=== PATIENT | female | born 1965 | race Two or more races ===

== ENCOUNTER 2019-03-16 01:59 | Outpatient (CLI) | payer OTHER | END 2019-03-16 02:00 | disposition critical access hospital (66) | LOC: EMS 01:59 | PROVIDERS: ATTEND Surgery | DX: R41.82 Altered mental status, unspecified (principal); R47.81 Slurred speech; Z72.89 Other problems related to lifestyle | CPT/HCPCS: A0425; A0429 ==

== ENCOUNTER 2019-03-16 02:18 | Emergency (ER) | payer OTHER ==
--- NOTE | 2019-03-16 02:19 | ED Physician Documentation ---
PD HPI ALTERED MENTAL STATUS - Stated complaint Stated Complaint: LOC - History obtained from History obtained from: Patient, EMS - History of Present Illness Timing - details: Gradual onset Quality / character: Less responsive Associated symptoms: No: Headache, Stiff neck, Dyspnea, Cough, NVD, General weakness, Focal weakness Contributing factors: Intoxicated Basline status: Alert and oriented X 3, Ambulatory, Independent Recently seen: Not recently seen - Additional information Additional information: BIBA. Medics state that patient was sitting on a bench outside a bar, did not appear to be responding and thus police were called. Reportedly, they administered sternal rub and patient responded to this with profanity and belligerent behavior. EMS was called and bring patient to ED for AMS. Patient is drowsy but awakens to verbal and gentle tactile stimulation, admits to drinking alcohol heavily. She denies any fall, denies injury, repeatedly requesting to be discharged. She says she did not want to come to ED Review of Systems Cardiac: reports: Reviewed and negative Respiratory: reports: Reviewed and negative GI: reports: Reviewed and negative Neurologic: reports: Altered mental status. denies: Generalized weakness, Focal weakness, Numbness, Headache, Head injury, LOC PD PAST MEDICAL HISTORY - Past Medical History Past Medical History: No - Allergies Allergies/Adverse Reactions: Allergies Allergy/AdvReac Type Severity Reaction Status Date / Time No Known Drug Allergies Allergy Verified 03/16/19 02:36 - Living Situation Living Arrangement: reports: At home - Social History Does the pt drink ETOH?: No PD ED PE NORMAL - Vitals Vital signs reviewed: Yes - General General: No acute distress, Well developed/nourished, Other (asleep, awakens to verbal combined with gentle tactile stimuli) - HEENT HEENT: Atraumatic, PERRL, EOMI, Moist mucous membranes - Neck Neck: No bony TTP - Cardiac Cardiac: RRR, No murmur, No gallop, No rub - Respiratory Respiratory: No respiratory distress, Clear bilaterally - Abdomen Abdomen: Soft, Non tender - Neuro Neuro: Alert and oriented X 3, 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 During H+P, she takes out her cell phone and is able to make calls and speak intelligibly. At this time, there is no cause to hold her in ED against her will and no indication for emergent testing nor treatment Departure - Departure Disposition: 01 Home, Self Care Clinical Impression: Alcohol intoxication Qualifiers: Complication of substance-induced condition: uncomplicated Qualified Code(s): F10.920 - Alcohol use, unspecified with intoxication, uncomplicated Condition: Good Instructions: ED Alcohol Intoxication Discharge Date/Time: 03/16/19 02:54
[2019-03-16 02:35] VITALS: BP 119/82
== END 2019-03-16 02:54 | disposition home or self-care (01) ==
LOC: EDUNIT# → ED 02:18
DX: F10.920 Alcohol use, unspecified with intoxication, uncomplicated (principal)
CPT/HCPCS: 99283; 99284

== ENCOUNTER 2019-05-13 08:51 | Outpatient (CLI) | payer OTHER ==
--- NOTE | 2019-05-13 10:25 | SLEEP CARE CONSULTATION ---
Information from patient questionnaire entered by Kiersten Wells. I have reviewed and concur with the information entered by Kiersten Wells. This document represents the service I personally performed and the decisions made by me, Rosy Multani MD, [facility]. History of Present Illness Reason for Visit: New patient Chief Complaint: reports: Other (was not able to breathe/hospitalized, unable to sleep) Duration of Symptoms: most of my life Usual bedtime: varies Time it takes to fall asleep: hours Snores at night: Yes Observed to quit breathing while asleep: No Number of times waking at night: 5-6 Reasons for waking at night: reports: Bathroom, Other (just wake up) Toss, Turn, or Twitch while sleeping: Yes Recalls having dreams: Yes Usually gets out of bed at: varies Feels refreshed in the morning: No Morning headache: No Sleepy or fatigued during the day: Yes Ever fallen asleep while driving: Yes Takes day naps: Yes Dreams during day naps: Yes Prior sleep studies: No Additional HPI information: I had the pleasure of seeing Ms. Borges today regarding the possibility of her having a sleep disorder. As you know, she is a 53 year old lady who complains of shortness of breath at night. She was on home oxygen for a month 4 months ago. The patient tells me that she normally goes to bed at variable times, and it takes her approximately hours to fall asleep. She has not been told that she snores loudly and irregularly at night. She has never been observed to stop breathing in her sleep. However, she sleeps alone. She can recall waking up on the average of 5 - 6 times during the night. Most of the time she wakes up because of having to use the bathroom. She has awakened occasionally because of her own snoring, choking, and having to gasp for air. There is not a lot of tossing and turning in her sleep. No somniloquy (sleep talking) or somnambulism (sleep walking). In the morning she usually gets up out of the bed at variable times, not feeling refreshed nor rested. She usually does not have a morning headache. During the day she complains of feeling sleepy and fatigued. However, her score on [place] Sleepiness Scale is 2 out of 24. She has fallen asleep while driving and has gone out of the boo. She usually takes naps during the day. Upon falling asleep during the day she reports having dreams. She has never had sleep paralysis, experienced cataplexy or symptoms of restless leg syndrome. She denies having impaired concentration during the day. - Parasomnia Symptoms Ever been unable to move upon waking from sleep: No Ever felt weak in the knees when startled or emotional: No Bothered by creepy, crawly, restless sensations in legs: No Problems with memory or concentration: No Past Medical History Past Medical History: reports: Claustrophobia, Hypothyroidism, Anxiety, Asthma, Depression, GERD Social History The patient's occupation is a disabled . Patient is Single and lives in . Have you smoked in the past 12 months: Yes Cigarettes per day (20/pack): 10 Years of smokin Smoking Pack Years: 15.0 Alcohol use: Yes Alcohol amount and frequency: 1-2 drinks a week Caffeine use: Yes Caffeine amount and frequency: 3-4 cups a day Family History Family history of sleep disordered breathing: No Allergies and Home Medications Drug allergies reviewed: Yes Home medication list reviewed: Yes Allergy and home medication list: Meds: levothyroxine, omeprazole, fluoxetine Allergies: no known drug allergies Review of Systems Weight gain over past 5 years: 160 Cardiovascular: denies: high blood pressure, palpitations, chest pain, irregular heart rate or pulse, leg or foot swelling, have to sleep sitting up, other Respiratory: reports: shortness of breath Gastrointestinal: reports: heartburn Urinary: denies: incontinence, frequency, urgency, impotence, other Neurological: reports: headaches, seizure Psychiatric: reports: anxiety, depression, claustrophobia Ear/Nose/Throat: denies: nasal congestion, sinus problems, nose bleeds, dry mouth/throat, hoarseness, injury to nose, tonsillectomy, wisdom teeth removed, other Endocrine: reports: thyroid disease, sluggishness, too hot or cold, increased appetite Musculoskeletal: reports: joint pain, neck pain, muscle pain or cramping, mobility problems Immunologic: reports: sneezing, itching, allergies to food or environment (to environment) Physical Exam Vital signs obtained and entered by: Dr. Multani Blood Pressure: 104/80 Cuff size: regular Heart Rate: 75 O2 Saturation: 95 Height: 5 ft 2 in Weight: 260 lb Body Mass Index: 47.5 BMI Classification: Obesity Class 3 Neck circumference: 16 Mood/affect: normal HEENT: No craniofacial malformation Nostrils: patent to airflow Turbinates: normal Septum: midline Mouth and throat: narrow oropharynx Soft palate: long Hard palate: normal Uvula: normal Uvula visualization: 25% Mallampati Class III Tongue: normal in size Tonsils: small Chin and jaw: normal size and position Neck: normal w/o lymphadenopathy or thyromegaly Heart: regular rate and rhythm Lungs: clear bilaterally Abdomen: soft, non-tender Extremities: no edema or clubbing Neurologic: intact, no focal deficits Impression and Plan IMPRESSION: 1. Hypoxemia, and nocturnal dyspnea. Obstructive sleep apnea-hypopnea is very likely given loud and irregular snoring, frequent awakenings during the night, nocturnal choking, unrefreshed sleep, and daytime hypersomnolence. Narrow oropharynx and obesity are common predisposing factors for obstructive sleep apnea-hypopnea syndrome. Pathophysiology of sleep-disordered breathing was discussed. I recommend proceeding to polysomnography to confirm the diagnosis and to assess severity. If she has significant sleep disordered breathing, a manual CPAP titration study will also be performed to find the optimal treatment pressure. I informed the patient of what the sleep studies involve and after some discussion, she agreed to proceed. Plan: 1. Schedule polysomnography + manual CPAP titration study. 2. Avoid long distance driving or when feeling sleepy. 3. Avoid alcohol, sedative and muscle relaxant around bedtime. 4. Attempt to lose weight. 5. Quit smoking cigarettes 5. Return in 1 to 2 weeks after the study to discuss results and initiate therapy I spent 100% of this visit face to face with the patient with greater than 50% of this was spent time counseling the patient and coordination of care.
[2019-05-13 10:26] VITALS: BP 104/80
== END 2019-05-13 08:52 | disposition home or self-care (01) ==
LOC: SC 08:51
PROVIDERS: ATTEND Internal Medicine Pulmonary Disease
DX: R09.02 Hypoxemia (principal); R06.83 Snoring; G47.8 Other sleep disorders; G47.10 Hypersomnia, unspecified; E66.9 Obesity, unspecified; Z68.42 Body mass index [BMI] 45.0-49.9, adult
CPT/HCPCS: 99203; 99212

== ENCOUNTER 2019-05-26 18:57 | Outpatient (CLI) | payer OTHER | END 2019-05-26 18:58 | disposition home or self-care (01) | LOC: SC 18:57 | PROVIDERS: ATTEND Internal Medicine Pulmonary Disease | DX: G47.33 Obstructive sleep apnea (adult) (pediatric) (principal); E66.01 Morbid (severe) obesity due to excess calories; Z68.42 Body mass index [BMI] 45.0-49.9, adult | CPT/HCPCS: 95810 ==

== ENCOUNTER 2019-07-07 19:01 | Outpatient (CLI) | payer OTHER | END 2019-07-07 19:02 | disposition home or self-care (01) | LOC: SC 19:01 | PROVIDERS: ATTEND Internal Medicine Pulmonary Disease | DX: G47.33 Obstructive sleep apnea (adult) (pediatric) (principal) | CPT/HCPCS: 95811 ==

== ENCOUNTER 2019-07-23 09:27 | Emergency (ER) | payer OTHER ==
--- NOTE | 2019-07-23 10:10 | XRAY Report ---
Reason: chest pain, cough Procedure Date: 07/23/2019 Accession Number: [id number] / [id number] Procedure: XR - Chest 2 View X-Ray CPT Code: 73113 Final Report FULL RESULT: EXAM: CHEST RADIOGRAPHY EXAM DATE: 07/23/2019 10:03 AM. CLINICAL HISTORY: Chest pain, cough. COMPARISON: None. TECHNIQUE: 2 views. FINDINGS: Lungs/Pleura: Lung volumes are within normal. There is mildly increased reticular opacity with the left midline. No pleural effusion. There is no pneumothorax. Mediastinum: Heart and mediastinal contours are unremarkable. Other: None. IMPRESSION: 1. Normal lung volumes and heart size. 2. There is mildly increased opacity within the left midlung. Differential considerations include infiltrate or artifact secondary to overlapping structures. 3. No evidence of pleural effusion. 4. There is no pneumothorax. RADIA
[2019-07-23 10:26] LABS: BASOPHILS % (AUTO) 0.2 %; EOSINOPHILS # (AUTO) 0.1 10^3/uL (0.0-0.7); EOSINOPHILS % (AUTO) 1.8 %; HGB - HEMOGLOBIN 13.6 g/dL (12.0-16.0); LYMPHOCYTES # (AUTO) 1.2 10^3/uL (1.5-3.5); LYMPHOCYTES % (AUTO) 21.3 %; MEAN CORPUSCULAR HEMOGLOBIN 28.1 pg (27.0-31.0); MEAN CORPUSCULAR HGB CONC 32.5 g/dL (32.0-36.0); MEAN CORPUSCULAR VOLUME 86.4 fL (81.0-99.0); MEAN PLATELET VOLUME 9.9 fL (7.9-10.8); MONOCYTES # (AUTO) 0.4 10^3/uL (0.0-1.0); MONOCYTES % (AUTO) 6.6 %; NEUTROPHILS # (AUTO) 3.9 10^3/uL (1.5-6.6); NEUTROPHILS % (AUTO) 69.7 %; PLT - PLATELET COUNT 230 10^3/uL (130-450); RED BLOOD COUNT 4.84 10^6/uL (4.20-5.40); RED CELL DISTRIBUTION WIDTH 13.1 % (12.0-15.0); WHITE BLOOD COUNT 5.6 x10^3/uL (4.8-10.8)
--- NOTE | 2019-07-23 10:36 | ED Physician Documentation ---
PD HPI URI - Stated complaint Stated Complaint: FEVER/COUGH - Chief complaint Chief Complaint: Resp - History obtained from History obtained from: Patient - History of Present Illness Timing - onset: How many days ago (several days) Timing duration: Days Timing details: Abrupt onset, Still present Associated symptoms: Fever, Productive cough, Chest pain, Dyspnea. No: Hemoptysis, NVD Contributing factors: No: Sick contact, Travel, Immunocompromised, COPD / asthma Similar symptoms before: Has not had sx before Review of Systems Constitutional: reports: Fever, Chills, Myalgias Nose: reports: Congestion Cardiac: reports: Chest pain / pressure (with coughing). denies: Palpitations Respiratory: reports: Dyspnea, Cough GI: denies: Nausea, Vomiting, Diarrhea Skin: denies: Rash Neurologic: reports: Headache. denies: Altered mental status, Head injury PD PAST MEDICAL HISTORY - Past Medical History Respiratory: None Endocrine/Autoimmune: HyPOthyroidism - Present Medications Home Medications: Ambulatory Orders Medication Instructions Recorded Confirmed Amoxicillin 500 mg PO TID #21 capsule 07/23/19 Benzonatate [Tessalon Perle] 100 mg PO TID PRN #30 capsule 07/23/19 dexAMETHasone [Decadron] 4 mg PO DAILY #5 tablet 07/23/19 diphenhydrAMINE [Benadryl] 25 mg PO Q4-6H PRN #30 capsule 07/23/19 - Allergies Allergies/Adverse Reactions: Allergies Allergy/AdvReac Type Severity Reaction Status Date / Time No Known Drug Allergies Allergy Verified 07/23/19 09:40 - Social History Does the pt smoke?: Yes Smoking Status: Current every day smoker Does the pt drink ETOH?: No - Immunizations Immunizations are current?: Yes - POLST Patient has POLST: No PD ED PE NORMAL - Vitals Vital signs reviewed: Yes - General General: Alert and oriented X 3, No acute distress, Well developed/nourished - HEENT HEENT: Pharynx benign - Neck Neck: Supple, no meningeal sign, No adenopathy - Cardiac Cardiac: RRR, No murmur - Respiratory Respiratory: No: Clear bilaterally (no coarse sounds but does have some wheezing noted left mid lung. ) - Abdomen Abdomen: Soft, Non tender - Derm Derm: Normal color, Warm and dry - Extremities Extremities: No tenderness to palpate, No edema, No calf tenderness / cord - Neuro Neuro: Alert and oriented X 3, No motor deficit, Normal speech Results - Vitals Vitals: Vital Signs - 24 hr 07/23/19 07/23/19 07/23/19 09:38 10:20 11:54 Temperature 36.3 C L 65.2 C H Heart Rate 80 66 64 Respiratory 20 15 17 Rate Blood Pressure 133/91 H 116/69 113/70 O2 Saturation 94 95 94 Oxygen O2 Source Room air - EKG (time done) 09:48 Rate: Rate (enter#) (74) Rhythm: NSR [place]: Normal Intervals: Normal [place] QRS: Normal Ischemia: Normal ST segments. No: ST elevation c/w ischemia, ST depression - Labs Labs: Laboratory Tests 07/23/19 07/23/19 07/23/19 10:15 10:15 10:15 WBC 5.6 RBC 4.84 Hgb 13.6 Hct 41.8 MCV 86.4 MCH 28.1 MCHC 32.5 RDW 13.1 Plt Count 230 MPV 9.9 Neut # (Auto) 3.9 Lymph # (Auto) 1.2 L Stevens # (Auto) 0.4 Eos # (Auto) 0.1 Baso # (Auto) 0.0 Absolute Nucleated RBC 0.00 Nucleated RBC % 0.0 Sodium 139 Potassium 4.2 Chloride 107 Carbon Dioxide 25 Anion Gap 7.0 BUN 16 Creatinine 0.8 Estimated GFR (MDRD) 75 L Glucose 114 H Calcium 8.8 Total Bilirubin 0.9 AST 13 ALT 18 Alkaline Phosphatase 97 Troponin I High Sens < 2.3 L Total Protein 7.0 Albumin 3.6 Globulin 3.4 Albumin/Globulin Ratio 1.1 Lipase 26 Influenza A (Rapid) Influenza B (Rapid) 07/23/19 10:50 WBC RBC Hgb Hct MCV MCH MCHC RDW Plt Count MPV Neut # (Auto) Lymph # (Auto) Stevens # (Auto) Eos # (Auto) Baso # (Auto) Absolute Nucleated RBC Nucleated RBC % Sodium Potassium Chloride Carbon Dioxide Anion Gap BUN Creatinine Estimated GFR (MDRD) Glucose Calcium Total Bilirubin AST ALT Alkaline Phosphatase Troponin I High Sens Total Protein Albumin Globulin Albumin/Globulin Ratio Lipase Influenza A (Rapid) Negative Influenza B (Rapid) Negative - Rads (name of study) chest xray Radiology: Prelim report reviewed (left mid lung with small infiltrate), See rad report PD MEDICAL DECISION MAKING - ED course Complexity details: reviewed results, re-evaluated patient, considered differential, d/w patient Departure - Departure Disposition: 01 Home, Self Care Clinical Impression: Lower respiratory infection (e.g., bronchitis, pneumonia, pneumonitis, pulmonitis) Pneumonia Qualifiers: Pneumonia type: due to unspecified organism Laterality: left Lung location: lower lobe of lung Qualified Code(s): J18.9 - Pneumonia, unspecified organism Condition: Stable Record reviewed to determine appropriate education?: Yes Instructions: ED Upper Resp Infec Abx Tx Follow-Up: BRITTON ABDULLAHI MD [Primary Care Provider] - Prescriptions: Amoxicillin 500 mg PO TID #21 capsule Benzonatate [Tessalon Perle] 100 mg PO TID PRN #30 capsule PRN Reason: Cough dexAMETHasone [Decadron] 4 mg PO DAILY #5 tablet diphenhydrAMINE [Benadryl] 25 mg PO Q4-6H PRN #30 capsule PRN Reason: Cough Comments: Use your albuterol inhaler 2 puffs 4 times a day for the next 7 to 10 days at home. Extra times as needed. Tessalon as needed for cough. Use Decadron steroid for inflammation of the airways daily for the next 5 days. There is a very small haziness in the mid left lung so concern for early pneumonia. Amoxicillin 3 times a day for a week for that in case of bacterial. Add Benadryl decongestant if needed for congestion cough as well. Recheck if not improving well over the next few days and return if worsening. Discharge Date/Time: 07/23/19 12:02
[2019-07-23 10:39] LABS: ALBUMIN 3.6 g/dL (3.2-5.5); ALBUMIN/GLOBULIN RATIO 1.1 (1.0-2.2); BILIRUBIN,TOTAL 0.9 mg/dL (0.2-1.0); CALCIUM 8.8 mg/dL (8.5-10.3); CREATININE 0.8 mg/dL (0.4-1.0)
[2019-07-23] MEDS ORDERED: BENZONATATE 100 MG CAPSULE PO STA (11:06)
[2019-07-23] MEDS ORDERED: CHERRY SYRUP 10 ML UDC PO ONE (11:06)
[2019-07-23] MEDS ORDERED: ALBUTEROL NEB 2.5 MG/3 ML INH STA (11:06)
[2019-07-23] MEDS ORDERED: DEXAMETHASONE 10 MG/ML VIAL PO STA (11:06)
[2019-07-23] MEDS ORDERED: AMOXICILLIN 250 MG CAPSULE PO STA (11:06)
[2019-07-23 11:55] VITALS: BP 113/70
== END 2019-07-23 12:02 | disposition home or self-care (01) ==
LOC: ED 09:27
DX: J22 Unspecified acute lower respiratory infection (principal); J18.9 Pneumonia, unspecified organism; F17.200 Nicotine dependence, unspecified, uncomplicated
CPT/HCPCS: 36415; 71046; 80053; 83690; 84484; 85025; 87275; 87276; 93005; 99284; A9270

== ENCOUNTER 2020-07-19 01:55 | Outpatient (CLI) | payer MEDICAID | END 2020-07-19 01:56 | disposition short-term general hospital (02) | LOC: EMS 01:55 | DX: R06.02 Shortness of breath (principal) | CPT/HCPCS: A0425; A0427; A0999 ==